=== PATIENT | female | born 1965 | race Caucasian/White ===

== ENCOUNTER 2016-10-19 23:57 | Emergency (ER) | payer OTHER ==
[2016-10-19 23:58] VITALS: BMI 27.1
[2016-10-20 00:21] VITALS: BP 155/79; PULSE 59; RESP 16; TEMP 97.9; O2SAT 99
[2016-10-20 00:36] LABS: RBC URINE 4 /hpf (0-3); URINE BILIRUBIN NEGATIVE (NEGATIVE); URINE BLOOD 2+ (NEGATIVE); URINE COLOR Straw (YELLOW); URINE GLUCOSE (UA) NORMAL (Normal); URINE KETONE NEGATIVE (NEGATIVE); URINE LEUKOCYTE ESTERASE NEG Leu/uL (Negative); URINE PROTEIN NEGATIVE (NEGATIVE); URINE UROBILINOGEN NORMAL mg/dL (0.2-1.0); WBC URINE 2 /hpf (0-5)
--- NOTE | 2016-10-20 00:46 | C.PDOC ---
History Of Present Illness 51 year old female with vaginal itching, dryness and irritation for 3 days. She also reports burning with urination. Patient tried monistat few days prior without relief. Denies any flank or abdominal pain, no bleeding. Time Seen by Provider: 10/20/16 00:22 Chief Complaint (Nursing): Female Genitourinary History Per: Patient History/Exam Limitations: no limitations Onset/Duration Of Symptoms: Days (3) Current Symptoms Are (Timing): Still Present Quality Of Discomfort: Burning Associated Symptoms: Urinary Symptoms (burning with urination ) Additional History Per: Patient Abnormal Vaginal Bleeding: No Past Medical History Reviewed: Historical Data, Nursing Documentation, Vital Signs Vital Signs: Last Vital Signs Temp 97.9 F 10/20/16 00:18 Pulse 59 L 10/20/16 00:18 Resp 16 10/20/16 00:18 BP 155/79 H 10/20/16 00:18 Pulse Ox 99 10/20/16 04:34 - Medical History PMH: Bronchitis Surgical History: Cholecystectomy, Endoscopy Family History: States: Unknown Family Hx - Social History Hx Tobacco Use: No Hx Alcohol Use: No Hx Substance Use: No - Immunization History Hx Tetanus Toxoid Vaccination: No Hx Influenza Vaccination: No Hx Pneumococcal Vaccination: No Review Of Systems Gastrointestinal: Negative for: Abdominal Pain Genitourinary: Positive for: Dysuria, Other (+vaginal itching, dryness and irritation ). Negative for: Vaginal Bleeding Musculoskeletal: Negative for: Back Pain Physical Exam - Physical Exam Appears: Non-toxic, No Acute Distress Skin: Normal Color, Warm, Dry Head: Atraumatic, Normacephalic Eye(s): bilateral: Normal Inspection Oral Mucosa: Moist Neck: Normal ROM, Supple Chest: Symmetrical Gastrointestinal/Abdominal: Bowel Sounds, Soft, No Tenderness, No Mass, No Guarding Back: No Vertebral Tenderness Pelvic: No Vaginal Bleeding, No Vaginal Discharge, No Cervical Motion Tenderness , Other (+dryness and mild atrophy. no malodor ) Extremity: Normal ROM, Capillary Refill (less than 2 seconds ) Neurological/Psych: Oriented x3, Normal Speech Gait: Steady ED Course And Treatment O2 Sat by Pulse Oximetry: 99 (on RA) Pulse Ox Interpretation: Normal Medical Decision Making Medical Decision Makin51 year old female with vaginal itching,dryness and irritation. UA ordered and reviewed which was negative. Exam showed dryness and mild atrophy, no discharge or malodor. Will prescribe vaginal moisturizer. Urine culture was ordered. Patient was advised to follow up with administrative resources associate. Disposition Counseled Patient/Family Regarding: Diagnosis, Need For Followup, Rx Given - Disposition Referrals: [facility] [Outside] [facility] [Outside] Disposition: HOME/ ROUTINE Disposition Time: 00:43 Condition: STABLE Additional Instructions: Por favor, siga con gineclogo o clnica Use un aplicador de gel vaginal iona veces por semana Prescriptions: Glycerin/Min Oil/Polycarbophil [Replens] 1 cre VG HS #1 cre Instructions: Vaginitis (ED) Forms: ralali (Swedish) Print Language: WOLOF - POA Present On Arrival: None - Clinical Impression Clinical Impression: Atrophic vaginitis - PA / SKI TOW OPERATOR / Resident Statement MD/DO has reviewed & agrees with the documentation as recorded. - Scribe Statement The provider has reviewed the documentation as recorded by the Scribe (Kristina Dodd) All medical record entries made by the Scribe were at my direction and personally dictated by me. I have reviewed the chart and agree that the record accurately reflects my personal performance of the history, physical exam, medical decision making, and the department course for this patient. I have also personally directed, reviewed, and agree with the discharge instructions and disposition.
== END 2016-10-20 00:52 | disposition home or self-care (01) ==
LOC: C.ER 23:57
DX: N95.2 Postmenopausal atrophic vaginitis (principal)

== ENCOUNTER 2017-10-06 20:06 | Emergency (ER) | payer SELFPAY ==
[2017-10-06 20:06] VITALS: BMI 27.1
[2017-10-06 20:41] VITALS: RESP 20
[2017-10-06] MEDS ORDERED: Belladonna-Phenobarbital PO STA (20:52)
[2017-10-06] MEDS ORDERED: Iohexol 240 (50 ml) PO STA (20:52)
[2017-10-06] MEDS ORDERED: Lactated Ringer's 1,000 ML IVB ONE (20:53)
[2017-10-06] MEDS ORDERED: Lactated Ringer's 1,000 ML ONE (21:20)
[2017-10-06] MEDS ORDERED: Belladonna-Phenobarbital ONE (21:21)
[2017-10-06] MEDS ORDERED: Iohexol 240 (50 ml) ONE (21:21)
[2017-10-06 21:28] LABS: BASO # 0.1 K/uL (0.0-0.2); BASO % 0.5 % (0.0-2.0); EOS # 0.2 K/uL (0.0-0.7); EOS % 1.8 % (0.0-4.0); HEMOGLOBIN 12.6 g/dL (11.0-16.0); LYMPH # 1.6 K/uL (1.0-4.3); LYMPH % 16.9 % (20.0-40.0); MEAN CORPUSCULAR HEMOGLOBIN 27.4 pg (27.0-31.0); MEAN CORPUSCULAR HGB CONC 33.1 g/dL (33.0-37.0); MEAN PLATELET VOLUME 12.3 fL (7.2-11.7); MONO # 0.9 K/uL (0.0-0.8); MONO % 8.8 % (0.0-10.0); RBC 4.61 Mil/uL (3.80-5.20); RED CELL DISTRIBUTION WIDTH 13.9 % (11.5-14.5); WHITE BLOOD COUNT 9.7 K/uL (4.8-10.8)
[2017-10-06 21:34] LABS: SQUAMOUS EPITHIAL 10 /hpf (0-5); URINE BILIRUBIN NEGATIVE (NEGATIVE); URINE BLOOD NEGATIVE (NEGATIVE); URINE CLARITY Hazy (Clear); URINE COLOR Straw (YELLOW); URINE GLUCOSE (UA) NORMAL (Normal); URINE LEUKOCYTE ESTERASE NEG Leu/uL (Negative); URINE PROTEIN NEGATIVE (NEGATIVE); URINE UROBILINOGEN NORMAL mg/dL (0.2-1.0)
[2017-10-06 21:41] LABS: MEAN CELL VOLUME 82.7 fL (81.0-99.0)
[2017-10-06 21:45] LABS: ALB/GLOB RATIO 1.3 (1.0-2.1); ALBUMIN 3.9 g/dL (3.5-5.0); ALT/SGPT 34 U/L (9-52); AST/SGOT 18 U/L (14-36); BLOOD UREA NITROGEN 12 mg/dL (7-17); GFR AFRICAN-AMERICAN > 60; GFR NON-AFRICAN AMERICAN > 60; LIPASE 64 U/L (23-300)
[2017-10-06] MEDS ORDERED: Iodixanol 320 MG/ML 100 ML BOTTLE IV ONE (22:18)
--- NOTE | 2017-10-06 23:48 | C.PDOC ---
Time Seen by Provider: 10/06/17 20:43 Chief Complaint (Nursing): Abdominal Pain History Per: Patient, Gasateria Attendant Onset/Duration Of Symptoms: Days (2) Current Symptoms Are (Timing): Still Present Severity: Moderate Location Of Pain/Discomfort: LLQ Quality Of Discomfort: "Pain" Associated Symptoms: Diarrhea, Back Pain Alleviating Factors: None Additional History Per: Prior Records Past Medical History Reviewed: Historical Data, Nursing Documentation, Vital Signs Vital Signs: Last Vital Signs Temp 98.7 F 10/06/17 20:34 Pulse 62 10/06/17 20:34 Resp 20 10/06/17 20:34 BP 153/83 H 10/06/17 20:34 Pulse Ox 98 10/06/17 23:48 - Medical History PMH: Bronchitis Surgical History: Cholecystectomy, Endoscopy Family History: States: Unknown Family Hx - Social History Hx Tobacco Use: No Hx Alcohol Use: No Hx Substance Use: No - Immunization History Hx Tetanus Toxoid Vaccination: No Hx Influenza Vaccination: No Hx Pneumococcal Vaccination: No Review Of Systems Except As Marked, All Systems Reviewed And Found Negative. Constitutional: Negative for: Fever, Weakness Cardiovascular: Negative for: Chest Pain Respiratory: Negative for: Shortness of Breath Gastrointestinal: Positive for: Abdominal Pain, Diarrhea. Negative for: Vomiting Genitourinary: Negative for: Dysuria Musculoskeletal: Negative for: Neck Pain Skin: Negative for: Rash Neurological: Negative for: Weakness, Numbness Physical Exam - Physical Exam Appears: Non-toxic, No Acute Distress Skin: Normal Color, Warm, Dry, No Rash Head: Atraumatic, Normacephalic Eye(s): bilateral: Normal Inspection, PERRL, EOMI Neck: Normal ROM, Supple Cardiovascular: Rhythm Regular Respiratory: Normal Breath Sounds, No Accessory Muscle Use Gastrointestinal/Abdominal: Soft, Tenderness (LLQ) Extremity: Normal ROM Neurological/Psych: Oriented x3, Normal Motor, Normal Sensation ED Course And Treatment - Laboratory Results Result Diagrams: 10/06/17 21:17 10/06/17 21:17 Lab Interpretation: No Acute Changes Urine POC: Negative O2 Sat by Pulse Oximetry: 98 Pulse Ox Interpretation: Normal Progress Note: I offered pt admission to the hospital, but pt wants to go home and try a course of oral antibiotics instead. Disposition Counseled Patient/Family Regarding: Studies Performed, Diagnosis, Need For Followup, Rx Given - Disposition Referrals: [facility] at [facility] [Outside] Disposition: HOME/ ROUTINE Disposition Time: 00:14 Condition: STABLE Additional Instructions: Drink plenty of fluids. Follow up in the clinic within 1 week for further evaluation and treatment. Return to the ER if you develop fever, vomiting, worsening of symptoms or if you have any other concerns. Prescriptions: Ciprofloxacin [Cipro] 1 tab PO BID #14 tab Metronidazole [Flagyl] 500 mg PO TID #21 tablet Instructions: Diverticulitis (DC) Print Language: MOLDOVAN - Clinical Impression Clinical Impression: Sigmoid diverticulitis
[2017-10-07 00:27] VITALS: BP 148/68; PULSE 78; TEMP 98; O2SAT 99
--- NOTE | 2017-10-07 12:04 | CT ---
Date of service: 10/06/2017 PROCEDURE: CT Abdomen and Pelvis with contrast HISTORY: LLQ pain. Diarrhea. r/o diverticulitis. COMPARISON: Comparison is made to the previous study dated 01/03/2016 TECHNIQUE: Contrast dose: 100 mL Visipaque 320. Axial and reformatted coronal and sagittal CT images of the abdomen and pelvis were obtained after IV and oral contrast administration. Radiation dose: Total exam DLP = 492.68 mGy-cm. This CT exam was performed using one or more of the following dose reduction techniques: Automated exposure control, adjustment of the mA and/or kV according to patient size, and/or use of iterative reconstruction technique. FINDINGS: LOWER THORAX: Unremarkable. LIVER: Unremarkable. No gross lesion or ductal dilatation. GALLBLADDER AND BILE DUCTS: The gallbladder is not visualized likely due to prior cholecystectomy. PANCREAS: Unremarkable. No gross lesion or ductal dilatation. SPLEEN: Unremarkable. ADRENALS: Again noted is 1.6 centimeter low-attenuation nodule at the left adrenal gland likely represent benign adenoma. The right adrenal gland is grossly unremarkable. KIDNEYS AND URETERS: Unremarkable. No hydronephrosis. No solid mass. VASCULATURE: Unremarkable. No aortic aneurysm. BOWEL: There are descending and sigmoid colon diverticulosis again noted. There are inflammatory changes surrounding the sigmoid colon consistent with acute diverticulitis. No evidence of abscess formation. No evidence all obstruction. APPENDIX: No evidence of appendicitis. PERITONEUM: Unremarkable. No free fluid. No free air. LYMPH NODES: Unremarkable. No enlarged lymph nodes. BLADDER: Unremarkable. REPRODUCTIVE: The uterus is heterogeneous and enlarged likely contains fibroids. There is also mildly enlarged left adnexa may contains small cyst. BONES: No acute fracture. OTHER FINDINGS: None. IMPRESSION: Findings consistent with sigmoid diverticulitis. No evidence of abscess formation. Diffuse wall thickening of the proximal and mid sigmoid colon. Further assessment of the large bowel after the acute phase is suggested to exclude neoplasm or other pathology. Re- demonstration of 1.6 centimeter low-attenuation nodule at the left adrenal gland likely represent benign adenoma. Additional findings as described above. Preliminary report was submitted by [facility].
== END 2017-10-07 00:27 | disposition home or self-care (01) ==
LOC: C.ER 20:06
DX: K57.32 Diverticulitis of large intestine without perforation or abscess without bleeding (principal)
CPT/HCPCS: 74177; 80053; 81001; 83690; 84703; 85025; 85610; 85730; 99284; J7120; Q9966; Q9967

== ENCOUNTER 2018-04-29 16:46 | Emergency (ER) | payer OTHER ==
[2018-04-29 16:46] VITALS: BMI 27.1
[2018-04-29] MEDS ORDERED: Sodium Chloride 0.9% 1,000 ML IV ONE (17:59)
[2018-04-29 18:13] LABS: BASO # 0.1 K/uL (0.0-0.2); BASO % 0.7 % (0.0-2.0); EOS # 0.2 K/uL (0.0-0.7); EOS % 2.4 % (0.0-4.0); HEMOGLOBIN 13.1 g/dL (11.0-16.0); LYMPH # 2.4 K/uL (1.0-4.3); LYMPH % 30.1 % (20.0-40.0); MEAN CELL VOLUME 82.4 fL (81.0-99.0); MEAN CORPUSCULAR HEMOGLOBIN 26.6 pg (27.0-31.0); MEAN CORPUSCULAR HGB CONC 32.2 g/dL (33.0-37.0); MEAN PLATELET VOLUME 11.2 fL (7.2-11.7); MONO # 0.6 K/uL (0.0-0.8); MONO % 7.4 % (0.0-10.0); NEUT # 4.7 K/uL (1.8-7.0); NEUT % 59.4 % (50.0-75.0); RBC 4.92 Mil/uL (3.80-5.20); RED CELL DISTRIBUTION WIDTH 14.5 % (11.5-14.5)
[2018-04-29 18:19] LABS: SQUAMOUS EPITHIAL 13 /hpf (0-5); URINE BILIRUBIN NEGATIVE (NEGATIVE); URINE BLOOD 1+ (NEGATIVE); URINE CLARITY Hazy (Clear); URINE COLOR Straw (YELLOW); URINE GLUCOSE (UA) NORMAL (Normal); URINE LEUKOCYTE ESTERASE NEG Leu/uL (Negative); URINE PROTEIN NEGATIVE (NEGATIVE); URINE UROBILINOGEN NORMAL mg/dL (0.2-1.0)
[2018-04-29 18:26] LABS: ALB/GLOB RATIO 1.7 (1.0-2.1); ALBUMIN 4.5 g/dL (3.5-5.0); ALT/SGPT 32 U/L (9-52); AST/SGOT 31 U/L (14-36); BLOOD UREA NITROGEN 9 mg/dL (7-17); CALCIUM 9.1 mg/dl (8.6-10.4); GFR NON-AFRICAN AMERICAN > 60; LIPASE 63 U/L (23-300)
--- NOTE | 2018-04-29 18:48 | C.PDOC ---
History Of Present Illness 53 y/o female presents to the ED complaining of lower abdominal pain for the last 3 days. Pain is localized to the suprapubic area and LLQ. Associated with mild dysuria and a few episodes of diarrhea. Patient has a PMHx of diverticul itis, and states her current pain feels different. Otherwise she denies any fevers, chills, nausea, vomiting, flank pain, or hematuria. Prior surgical hx: Cholecystectomy, Ectopic Time Seen by Provider: 04/29/18 17:46 Chief Complaint (Nursing): Abdominal Pain History Per: Patient History/Exam Limitations: no limitations Onset/Duration Of Symptoms: Days (3) Current Symptoms Are (Timing): Still Present Severity: Moderate Location Of Pain/Discomfort: LLQ, Suprapubic Radiation Of Pain To:: None Associated Symptoms: Diarrhea, Urinary Symptoms Past Medical History Reviewed: Historical Data, Nursing Documentation, Vital Signs Vital Signs: Last Vital Signs Temp 98.1 F 04/29/18 16:53 Pulse 56 L 04/29/18 16:53 Resp 17 04/29/18 16:53 BP 154/82 H 04/29/18 16:53 Pulse Ox 100 04/29/18 16:53 - Medical History PMH: Bronchitis, Diverticulitis Denies: Chronic Kidney Disease Surgical History: Cholecystectomy, Endoscopy Other Surgeries: Ectopic surgery Family History: States: Unknown Family Hx - Social History Hx Tobacco Use: No Hx Alcohol Use: No Hx Substance Use: No - Immunization History Hx Tetanus Toxoid Vaccination: No Hx Influenza Vaccination: No Hx Pneumococcal Vaccination: No Review Of Systems Constitutional: Negative for: Fever, Chills Cardiovascular: Negative for: Chest Pain Respiratory: Negative for: Shortness of Breath Gastrointestinal: Positive for: Abdominal Pain (lower), Diarrhea. Negative for: Nausea, Vomiting, Hematochezia Genitourinary: Positive for: Dysuria (mild). Negative for: Frequency, Incontinence, Hematuria, Vaginal Discharge Musculoskeletal: Negative for: Back Pain Neurological: Negative for: Weakness, Dizziness Physical Exam - Physical Exam Appears: Non-toxic, In Acute Distress (mild painful distress) Skin: Warm, Dry, No Rash Head: Atraumatic, Normacephalic Eye(s): bilateral: Normal Inspection, PERRL, EOMI Neck: Normal ROM Chest: Symmetrical Cardiovascular: Rhythm Regular, No Murmur Respiratory: Normal Breath Sounds, No Accessory Muscle Use, Other (Speaking in full sentences) Gastrointestinal/Abdominal: Soft, Tenderness (Mild suprapubic and LLQ tenderness), No Guarding, No Rebound Back: No CVA Tenderness, No Vertebral Tenderness Extremity: Bilateral: Atraumatic, Normal Color And Temperature Pulses: Left Dorsalis Pedis: Normal, Right Dorsalis Pedis: Normal Neurological/Psych: Oriented x3, Normal Cranial Nerves Gait: Steady ED Course And Treatment - Laboratory Results Result Diagrams: 04/29/18 18:07 04/29/18 18:07 Lab Results: Total Bilirubin 0.4 mg/dL (0.2-1.3) 04/29/18 18:07 AST 31 U/L (14-36) 04/29/18 18:07 ALT 32 U/L (9-52) 04/29/18 18:07 Alkaline Phosphatase 78 U/L (38-126) 04/29/18 18:07 Total Protein 7.1 g/dL (6.3-8.3) 04/29/18 18:07 Albumin 4.5 g/dL (3.5-5.0) 04/29/18 18:07 Globulin 2.6 gm/dL (2.2-3.9) 04/29/18 18:07 Albumin/Globulin Ratio 1.7 (1.0-2.1) 04/29/18 18:07 Lipase 63 U/L (23-300) 04/29/18 18:07 Urine Color Straw (YELLOW) 04/29/18 18:07 Urine Clarity Hazy (Clear) 04/29/18 18:07 Urine pH 6.0 (5.0-8.0) 04/29/18 18:07 Ur Specific [place] 1.003 (1.003-1.030) 04/29/18 18:07 Urine Protein Negative mg/dL (NEGATIVE) 04/29/18 18:07 Urine Glucose (UA) Normal mg/dL (Normal) 04/29/18 18:07 Urine Ketones Negative mg/dL (NEGATIVE) 04/29/18 18:07 Urine Blood 1+ (NEGATIVE) H 04/29/18 18:07 Urine Nitrate Negative (NEGATIVE) 04/29/18 18:07 Urine Bilirubin Negative (NEGATIVE) 04/29/18 18: Urine Urobilinogen Normal mg/dL (0.2-1.0) 04/29/18 18:07 Ur Leukocyte Esterase Neg Kary/uL (Negative) 04/29/18 18:07 Urine WBC (Auto) 1 /hpf (0-5) 04/29/18 18:07 Urine RBC (Auto) 1 /hpf (0-3) 04/29/18 18:07 Ur Squamous Epith Cells 13 /hpf (0-5) H 04/29/18 18:07 O2 Sat by Pulse Oximetry: 100 (RA) Pulse Ox Interpretation: Normal - CT Scan/US CT Abdomen/Pelvis Other Rad Studies (CT/US): Interpreted By Me, Read By Radiologist CT/US Interpretation: Name:EDUARDO CORONA Exam Date:Apr 29, 2018 7:47:55 PM EST. Modality Type:CT. Description:CT - ABDOMEN AND PELVIS WITH CORONAL AND SAGITTAL MPRS. Gender:F Laterality:Not applicable. :63 Referring Physician:ROYER LOPEZ MD. EXAM: CT Abdomen and Pelvis with IV contrast. CLINICAL HISTORY: LLQ PAIN. TECHNIQUE: Axial computed tomography images of the abdomen and pelvis with intravenous contrast. 0.00 mGy-cm. CONTRAST: With; VISI 320 100MLS. COMPARISON: None provided. FINDINGS: LUNG BASES: The lung bases appear clear. No pleural effusions are seen. LIVER: Unremarkable. GALLBLADDER AND BILE DUCTS: The gallbladder appears within normal limits. No radioopaque gallstones are seen. No biliary ductal dilatation is evident. PANCREAS: Unremarkable. SPLEEN: Unrem arkable. ADRENAL GLANDS: Unremarkable. KIDNEYS, URETERS, AND BLADDER: The kidneys appear within normal limits. There is no hydronephrosis or hydroureter. No urinary calculi are seen. Uterus appears enlarged and heterogeneous in attenuation measuring approximately 13 x 7 cm x 9.7 cm. STOMACH AND BOWEL: Unremarkable appearance of the stomach and bowel. No evidence of bowel obstruction. No evidence suggesting enteritis or colitis. There is mild diverticular changes involving the distal descending colon and sigmoid colon. There is no diverticular abscess or mass. APPENDIX: No evidence of acute appendicitis on CT examination. PERITONEUM: No free fluid. No free air. LYMPH NODES: No lymphadenopathy is evident. REPRODUCTIVE: Unremarkable as visualized. VASCULATURE: No evidence of abdominal aortic aneurysm. BONES: No aggressive appearing osseous lesion. No acute osseous pathology evident. IMPRESSION: Enlarged heterogeneous uterus. Diverticular changes involving the sigmoid and distal descending colon. Correlation with ultrasound examination of the pelvis as well as clinical correlation is advised. . Electronically signed on Apr 29, 2018 8:14:54 PM EST by: Colin Morocho M.D., Certified by [facility], Diagnostic Radiology. Progress Note: Blood work, UA ordered and reviewed. Administered 1 bolus NS IVF and 2 mg IV Morphine. Ordered CT Abdomen/Pelvis with IV contrast. CT scan shows "diverticular changes" in descending and sigmoid colon - suspect diverticulitis. Disposition Counseled Patient/Family Regarding: Studies Performed, Diagnosis, Need For Followup, Rx Given - Disposition Referrals: [facility] [Outside] Disposition: HOME/ ROUTINE Disposition Time: 00:20 Condition: STABLE Additional Instructions: FOLLOW UP WITH YOUR DOCTOR IN 1-2 DAYS DRINK PLENTY OF CLEAR FLUIDS USE MEDICATIONS DIRECTED RETURN TO EMERGENCY ROOM IF YOUR SYMPTOMS BECOME WORSE SEGUIR CON HOWARD MDICO EN 1-2 GODDARD BEBER MUCHOS FLUIDOS DAQUAN UTILICE MEDICAMENTOS CAROL SE DIRIGE VUELVA A LA MONIQUE DE EMERGENCIA SI JEWEL SNTOMAS SE HACEN PEOR Prescriptions: Ciprofloxacin [Cipro] 1 tab PO BID #14 tab metroNIDAZOLE [Flagyl] 500 mg PO TID #21 tab Naproxen 375 mg PO BID PRN #20 tablet PRN Reason: pain Instructions: Acute Abdomen (Belly Pain), Adult (DC) Forms: [employer] (Irish) Print Language: MOLDOVAN - Clinical Impression Clinical Impression: Abdominal pain, Diverticulitis, Uterine fibroid - Scribe Statement The provider has reviewed the documentation as recorded by the Christine Treadwell Provider Attestation: All medical record entries made by the Bruceibdara were at my direction and personally dictated by me. I have reviewed the chart and agree that the record accurately reflects my personal performance of the history, physical exam, medi chelsie decision making, and the department course for this patient. I have also personally directed, reviewed, and agree with the discharge instructions and disposition.
[2018-04-29] MEDS ORDERED: Iodixanol 320 MG/ML 100 ML BOTTLE IV ONE (19:33)
[2018-04-30 00:34] VITALS: BP 120/82; PULSE 82; RESP 20; TEMP 98; O2SAT 98
--- NOTE | 2018-04-30 07:23 | CT ---
CT abdomen and pelvis HISTORY: Left lower quadrant abdominal pain. COMPARISON: CT scan dated 10/06/2017 TECHNIQUE: Multiple contiguous axial images were performed through the abdomen and pelvis with the use of intravenous contrast. Subsequently, sagittal and coronal reformatted images were obtained. This CT exam was performed using one or more of the following dose reduction techniques: Automated exposure control, adjustment of the mA and/or kV according to patient size, and/or use of iterative reconstruction technique. Findings: Scattered atelectasis at the lung bases. No pleural or pericardial effusion. Punctate 2 millimeter calcification within the liver. Contracted and or resected gallbladder. Prominent common bile duct. Spleen is preserved. 1.6 centimeter low-attenuation lesion within the left adrenal gland demonstrating a Hounsfield unit attenuation of 42, indeterminate. Correlation with multiphasic CT or MR would be helpful for further evaluation of this lesion/nodule. Pancreas is preserved. Upper abdominal bowel is preserved. Right kidney: No calculi or hydronephrosis. Left Kidney: No calculi or hydronephrosis. Urinary bladder is preserved. Large and heterogeneous uterus with a suggestion of a multi fibroid appearance. In addition, there are focal areas of low attenuation within the uterus. There is a suggestive suggestion of possible fibroid extension into the endometrial canal. Correlation with pelvic ultrasound would be helpful for further evaluation if clinically indicated. Fecal retention in the colon. Colonic diverticulosis most prominent within the left hemicolon and sigmoid colon. No gross evidence of diverticulitis. Appendix is visualized and within normal limits. Shotty para-aortic and inguinal lymph nodes. Shotty mesenteric lymph nodes. Degenerative changes in the spine. Sclerosis of the bilateral SI joints and pubic symphysis. Impression: 1. Colonic diverticulosis. No evidence of gross diverticulitis. Moderate fecal retention in the colon. 2. Enlarged heterogeneous probable multi fibroid uterus with focal areas of low attenuation within the uterus. Correlation with pelvic ultrasound would be helpful. Clinical correlation. 3. 1.6 centimeter indeterminate left adrenal nodule/lesion. Correlation with multiphasic contrast enhanced CT or MR is recommended for further evaluation if clinically indicated. 4. Additional findings as above. A preliminary report was generated at 8:14 p.m. on 04/29/[address] Colin Barrett from [employer]. This case was placed in the PA review folder.
--- NOTE | 2018-04-30 08:48 | US ---
Date of service: 04/29/2018 HISTORY: SUPRAPUBIC AND PELVIC PAIN. LMP: 6 months ago COMPARISON: CT abdomen pelvis 10/06/2017. Pelvic ultrasound 06/08/2013 TECHNIQUE: Grayscale and color Doppler sonographic images were obtained of the pelvis utilizing transabdominal and transvaginal approach. FINDINGS: UTERUS: Anteverted and enlarged in sizemeasuring 10.9 x 7.5 x 8.8 cm. Heterogeneous mass noted in the left uterine body measuring 3.6 cm, likely fibroid. Additional heterogeneous mass noted in the posterior uterine body measuring 3.3 cm, also likely fibroid. ENDOMETRIUM: endometrial stripe measures 0.9 cm. CERVIX: Nabothian cysts noted. RIGHT OVARY: Measures 2.4 x 2.2 x 2.5 cm. Dominant follicle noted measuring 1.7 cm. Normal flow. LEFT OVARY: Measures 2.4 x 1.8 x 2.1 cm. Sonographically unremarkable Normal flow. FREE FLUID: No significant free fluid noted. OTHER FINDINGS: None. IMPRESSION: Enlarged uterus. Uterine masses as above, likely fibroids. Endometrial stripe measures 0.9 cm. Correlate with patient's menstrual status. If patient is postmenopausal, then this is thickened and correlation should be made with the patient's hormone status. Additional findings as above. Preliminary impression was provided by the Teleradiology service. Findings are concordant.
== END 2018-04-30 00:32 | disposition home or self-care (01) ==
LOC: C.ER 16:46
DX: K57.32 Diverticulitis of large intestine without perforation or abscess without bleeding (principal); D25.9 Leiomyoma of uterus, unspecified; R10.32 Left lower quadrant pain
CPT/HCPCS: 74177; 76830; 76856; 80053; 81001; 83690; 84703; 85025; 96361; 96374; 99284; J2270; J7030; Q9967